=== PATIENT | male | born 1970 | race Caucasian/White ===

== ENCOUNTER 2017-11-24 08:35 | Emergency (ER) | payer OTHER ==
[~2017-11-24] VITALS: Ht 175.3 cm; Wt 115.7 kg
[2017-11-24] MEDS ORDERED: HYDROCHLOROTHIA25 MG PO (08:51)
[2017-11-24] MEDS ORDERED: ATORVASTATIN CA10 MG PO (08:51)
[2017-11-24] MEDS ORDERED: MELOXICAM15 MG PO (08:52)
[2017-11-24] MEDS ORDERED: PHENTERMINE H37.5 MG PO (08:52)
[2017-11-24] MEDS ORDERED: ROXICODONE15 MG PO (09:01)
[2017-11-24] MEDS ORDERED: ADULT ASPIRIN81 MG PO (09:03)
[2017-11-24] MEDS ORDERED: ULTRAM50 MG PO (09:04)
[2017-11-24] MEDS ORDERED: MAPAP500 MG PO (09:05)
--- NOTE | 2017-11-24 12:36 | EKG ---
[facility] [address] [facility] [place] [address] Signed Normal sinus rhythm Normal ECG No previous ECGs available Confirmed by ORLANDO VILLANUEVA MD ([id number]) on 11/24/2017 12:36:18 PM Electronically Signed By: ORLANDO VILLANUEVA MD 11/24/17 1236 PATIENT NAME: KAUSHIK ANAYA Electrocardiogram DATE OF : 68 PHYSICIAN: ORLANDO VILLANUEVA MD REPORT #: [id number] REPORT IS CONFIDENTIAL AND NOT TO BE RELEASED WITHOUT AUTHORIZATION
== END 2017-11-24 11:20 | disposition home or self-care (01) ==
LOC: ED 08:35
DX: E86.0 Dehydration (principal); D64.9 Anemia, unspecified; I10 Essential (primary) hypertension; Z79.82 Long term (current) use of aspirin; Z79.899 Other long term (current) drug therapy
CPT/HCPCS: 71046; 71260; 80053; 81001; 84484; 85025; 85379; 93005; 93010; 96361; 96374; 99284; J1170; J7120; Q9967

== ENCOUNTER 2022-04-07 15:42 | Emergency (ER) | payer OTHER ==
[~2022-04-07] VITALS: Ht 175.3 cm; Wt 141.2 kg
[~2022-04-07 15:42] MED LIST: ADULT ASPIRIN81 MG PO; ATORVASTATIN CA10 MG PO; HYDROCHLOROTHIA25 MG PO; IRON325 M1 PO; MAPAP500 MG PO; MELOXICAM15 MG PO; MOBIC15 MG PO; NORCO 5-325 TA1 EACH PO; PHENTERMINE H37.5 MG PO; ROXICODONE15 MG PO; ULTRAM50 MG PO
--- OUTSIDE RECORDS SUMMARY | 2022-04-07 15:44 | XMS ---
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 [facility] VISIT COUNT (12 MO.) 1 TE[facility] [place] TOTAL 1 NOTE: Visits indicate total known visits. ED/UCC VISIT TRACKING (12 MO.) 04/07/2022 15:42 [facility] [place] TYPE: Emergency COMPLAINT: - BLOOD IN URINE INPATIENT VISIT TRACKING (12 MO.) No inpatient visits to display in this time frame [email or web address]
[2022-04-07] MEDS ORDERED: LOSARTAN-HCTZ1 EAC2 PO (17:08)
[2022-04-07] MEDS ORDERED: FLOMAX0.4 MG PO (19:53)
[2022-04-07] MEDS ORDERED: HYDROCODON-ACE1 EA11 PO (19:53)
[2022-04-07] MEDS ORDERED: ONDANSETRON ODT8 MG PO (19:53)
== END 2022-04-07 20:35 | disposition home or self-care (01) ==
LOC: ED 15:42
DX: N13.2 Hydronephrosis with renal and ureteral calculous obstruction (principal); I10 Essential (primary) hypertension; Z79.899 Other long term (current) drug therapy
CPT/HCPCS: 36415; 74176; 80053; 81001; 85025; 96374; 96375; 99284-25; A9270; J1885; J2405; J7030